=== PATIENT | male | born 1965 | race Caucasian/White ===

== ENCOUNTER 2021-08-07 15:38 | Outpatient (CLI) | payer BC ==
[2021-08-08 16:34] LABS: SARS-CoV-2 PCR by NAA Not Detected (NotDetected)
== END 2021-08-07 15:39 | disposition home or self-care (01) ==
LOC: CSHLAB 15:38
PROVIDERS: ATTEND Otolaryngology Otolaryngic Allergy
DX: Z01.818 Encounter for other preprocedural examination (principal); Z20.822 Contact with and (suspected) exposure to COVID-19; G47.33 Obstructive sleep apnea (adult) (pediatric)
CPT/HCPCS: 93005; 93010; U0003; U0005

== ENCOUNTER 2021-08-11 07:49 | Day surgery (SDC) | payer BC ==
[2021-08-10 12:47] VITALS: BMI 29.7
[2021-08-11] MEDS ORDERED: Lidocaine 1% MPF 2 ML VIAL ONE (10:19)
[2021-08-11] MEDS ORDERED: PROPOFOL 20 ML ONE (11:28)
== END 2021-08-11 12:20 | disposition home or self-care (01) ==
LOC: CSHSDC 07:49
PROVIDERS: ATTEND Otolaryngology Otolaryngic Allergy
PROC: 4A1ZXQZ Monitoring of Sleep, External Approach (ICD-10-PCS; principal; 2021-08-11)
DX: G47.33 Obstructive sleep apnea (adult) (pediatric) (principal); I10 Essential (primary) hypertension; Z79.82 Long term (current) use of aspirin
CPT/HCPCS: J2704